=== PATIENT | female | born 1945 | race Caucasian/White ===

== ENCOUNTER 2017-12-16 16:46 | Emergency (ER) | payer OTHER ==
[~2017-12-16] VITALS: Ht 165.1 cm; Wt 141.0 kg
[2017-12-16] MEDS ORDERED: IOHEXOL 300 MG/ML 50 ML VIAL. IV ONE (17:30)
[2017-12-16] MEDS ORDERED: IV NORMAL SALINE 1,000ML 1,000 ML IV ONE (17:30)
[2017-12-16 17:44] LABS: BASO % 0 % (0-3); EOS % 0 % (0-3); HEMATOCRIT 41.7 % (36.0-47.0); HEMOGLOBIN 14.4 g/dL (12.0-15.5); LYMPH # 0.7 x10^3/uL (1.0-4.8); LYMPH % 11 % (24-48); MEAN CORPUSCULAR HEMOGLOBIN 32 pg (25-35); MEAN CORPUSCULAR HGB CONC 35 g/dL (31-37); MEAN CORPUSCULAR VOLUME 93 fL (79-100); MONO # 0.6 x10^3/uL (0.0-1.1); MONO % 9 % (0-9); NEUT # 5.5 x10^3uL (1.8-7.7); NEUT % 80 % (31-73); PLATELET COUNT 160 x10^3/uL (140-400); RED CELL DISTRIBUTION WIDTH 13.6 % (11.5-14.5); WHITE BLOOD COUNT 6.9 x10^3/uL (4.0-11.0)
[2017-12-16] MEDS ORDERED: HYDROmorphone PF 1 MG/ML DISP.SYRIN IM ONE (17:45)
[2017-12-16 18:02] LABS: ALBUMIN 3.3 g/dL (3.4-5.0); ALBUMIN/GLOBULIN RATIO 0.9 (1.0-1.7); CALCIUM 8.9 mg/dL (8.5-10.1); GFR 61.7; TOTAL BILIRUBIN 6.5 mg/dL (0.2-1.0); TOTAL PROTEIN 7.1 g/dL (6.4-8.2)
[2017-12-16 18:03] LABS: CREATININE 0.9 mg/dL (0.6-1.0)
[2017-12-16 18:19] LABS: CLARITY,URINE CLEAR; COLOR,URINE YELLOW; GLUCOSE,URINE NEG (NEG)
[2017-12-16 18:23] LABS: BILIRUBIN,URINE SMALL (NEG); NITRITE,URINE NEG (NEG); UROBILINOGEN,URINE 1 mg/dL (0.2 mg/dL)
[2017-12-16 18:24] LABS: BACTERIA,URINE 0 /HPF (0-FEW); SQUAMOUS EPITHELIAL CELL,UR MOD /LPF; WBC,URINE OCC /HPF (0-4)
--- NOTE | 2017-12-16 18:24 | PHYS DOC ---
Past History Past Medical History: Arthritis, CHF, CVA, Fibromyalgia, High Cholesterol, Hypertension, Hypothyroid, Other Past Surgical History: Hip Replacement, Tubal ligation, Other Alcohol Use: None Drug Use: None Adult General Chief Complaint Chief Complaint: ABDOMINAL PAIN HPI HPI 2-year-old female presents with abdominal pain since last night. The patient started vomiting around 7 PM last night and vomited for 4 hours. She had abdominal pain during this time. The vomiting has improved today, but she still has diffuse abdominal pain worse in the right upper quadrant. She has not had a bowel movement 2 days which is unusual for her. She also denies any flatus today. She is concerned that something wrong abdomen. Patient has multiple chronic medical problems such as lupus, CHF,HTN, chronic pain. See medical hx for more details. The patient spoke with her PCP who is very concerned about her symptoms and advised that she come to the ED. Patient denies fever or chills. She has been taking all of her medicines occasions as prescribed. She takes high dose narcotics for pain and is still having pain. Review of Systems Review of Systems Constitutional: Denies fever or chills [] Eyes: Denies change in visual acuity, redness, or eye pain [] HENT: Denies nasal congestion or sore throat [] Respiratory: Denies cough or shortness of breath [] Cardiovascular: No additional information not addressed in HPI [] GI: Abdominal pain and vomiting[] : Denies dysuria or hematuria [] Musculoskeletal: Denies back pain or joint pain [] Integument: Denies rash or skin lesions [] Neurologic: Denies headache, focal weakness or sensory changes [] Endocrine: Denies polyuria or polydipsia [] All other systems were reviewed and found to be within normal limits, except as documented in this note. Current Medications Current Medications Current Medications Medications (Trade) Dose Ordered Sig/Jack Start Time Stop Time Status Last Admin Dose Admin Hydromorphone HCl (Dilaudid) 1 mg 1X ONCE 12/16/17 17:45 12/16/17 17:46 DC Iohexol (Omnipaque 300 Mg/ml) 100 ml 1X ONCE 12/16/17 17:30 12/16/17 17:31 DC 12/16/17 18:16 50 ML Sodium Chloride 1,000 ml @ 1,000 mls/hr 1X ONCE 12/16/17 17:30 12/16/17 18:29 12/16/17 17:29 1,000 MLS/HR Allergies Allergies Allergies Coded Allergies Type Severity Reaction Last Updated Verified Penicillins Allergy Unknown 12/16/17 Yes dapsone Allergy Unknown 12/16/17 Yes Physical Exam Physical Exam Constitutional: Well developed, well nourished, no acute distress, non-toxic appearance. [] HENT: Normocephalic, atraumatic, bilateral external ears normal, oropharynx moist, no oral exudates, nose normal. [] Eyes: PERRLA, EOMI, conjunctiva normal, no discharge. [] Neck: Normal range of motion, no tenderness, supple, no stridor. [] Cardiovascular:Heart rate regular rhythm, no murmur [] Lungs & Thorax: Bilateral breath sounds clear to auscultation [] Abdomen: Obese, soft, diffuse abdominal tenderness, worse RUQ, no masses, no pulsatile masses. [] Skin: Warm, dry, no erythema, no rash. [] Back: No tenderness, no CVA tenderness. [] Extremities: No tenderness, no cyanosis. [] Neurologic: Alert and oriented X 3, normal motor function, normal sensory function, no focal deficits noted. [] Psychologic: Affect normal, judgement normal, mood normal. [] Current Patient Data Vital Signs Vital Signs Date Time Temp Pulse Resp B/P (MAP) Pulse Ox O2 Delivery O2 Flow Rate FiO2 12/16/17 16:47 98.3 57 20 94 Room Air Lab Results Laboratory Tests Test 12/16/17 17:24 12/16/17 17:34 White Blood Count 6.9 x10^3/uL (4.0-11.0) Red Blood Count 4.50 x10^6/uL (3.50-5.40) Hemoglobin 14.4 g/dL (12.0-15.5) Hematocrit 41.7 % (36.0-47.0) Mean Corpuscular Volume 93 fL (79-100) Mean Corpuscular Hemoglobin 32 pg (25-35) Mean Corpuscular Hemoglobin Concent 35 g/dL (31-37) Red Cell Distribution Width 13.6 % (11.5-14.5) Platelet Count 160 x10^3/uL (140-400) Neutrophils (%) (Auto) 80 % (31-73) H Lymphocytes (%) (Auto) 11 % (24-48) L Monocytes (%) (Auto) 9 % (0-9) Eosinophils (%) (Auto) 0 % (0-3) Basophils (%) (Auto) 0 % (0-3) Neutrophils # (Auto) 5.5 x10^3uL (1.8-7.7) Lymphocytes # (Auto) 0.7 x10^3/uL (1.0-4.8) L Monocytes # (Auto) 0.6 x10^3/uL (0.0-1.1) Eosinophils # (Auto) 0.0 x10^3/uL (0.0-0.7) Basophils # (Auto) 0.0 x10^3/uL (0.0-0.2) Sodium Level 133 mmol/L (136-145) L Potassium Level 4.0 mmol/L (3.5-5.1) Chloride Level 95 mmol/L (98-107) L Carbon Dioxide Level 31 mmol/L (21-32) Anion Gap 7 (6-14) Blood Urea Nitrogen 14 mg/dL (7-20) Creatinine 0.9 mg/dL (0.6-1.0) Estimated GFR (Cockcroft-Gault) 61.7 BUN/Creatinine Ratio 16 (6-20) Glucose Level 121 mg/dL (70-99) H Calcium Level 8.9 mg/dL (8.5-10.1) Total Bilirubin 6.5 mg/dL (0.2-1.0) H Aspartate Amino Transferase (AST) 320 U/L (15-37) H Alanine Aminotransferase (ALT) 390 U/L (14-59) H Alkaline Phosphatase 393 U/L (46-116) H Total Protein 7.1 g/dL (6.4-8.2) Albumin 3.3 g/dL (3.4-5.0) L Albumin/Globulin Ratio 0.9 (1.0-1.7) L Lipase 75 U/L (73-393) EKG EKG [] Radiology/Procedures Radiology/Procedures [] Course & Med Decision Making Course & Med Decision Making Pertinent Labs and Imaging studies reviewed. (See chart for details) The patient's workup is pending. I am signing the patient out to Dr. Dey. [] Dragon Disclaimer Dragon Disclaimer This electronic medical record was generated, in whole or in part, using a voice recognition dictation system. Departure Departure: Referrals: TETE AGUIAR MD (PCP) ULISES BOWERS DO December 16, 2017 18:24
[2017-12-16] MEDS ORDERED: ONDANSETRON ODT 4 MG TAB.RAPDIS PO ONE (18:45)
--- NOTE | 2017-12-16 19:09 | RAD ---
CT ABD PELV W/ IV CONTRST ONLY dated 12/16/2017 6:19 PM Indication:..right sided abdominal pain, constipation, nausesa, hx of aortic aneurysm
gave omni 300 100ml due to patient weighs 310lbs
pain Comparison: No comparison is available. Technique: Contiguous axial imaging of the abdomen and pelvis performed after the administration of 100 cc Omnipaque 300. One or more of the following individualized dose reduction techniques were utilized for this examination: 1. Automated exposure control 2. Adjustment of the mA and/or kV according to patient size 3. Use of iterative reconstruction technique Findings: Limited images of lung bases are clear. Heart size moderately enlarged. No pleural or pericardial effusion. Diffuse low-density liver compatible with fatty infiltration. No apparent mass. Biliary tree is normal in caliber. Spleen is normal in size. There are calcific stones within the gallbladder lumen. Small bubbles of gas are also noted within them within the lumen and there is diffuse gallbladder wall thickening. Small amount of pericholecystic fluid. There are also foci of gas density within the cystic duct. The common bile duct is mildly dilated. No definite distal filling defect Adrenal glands and kidneys are unremarkable. No hydronephrosis. Unopacified GI tract normal in caliber and contour. No focal bowel wall thickening. No inflammatory stranding in the mesentery. No ascites or lymphadenopathy. Abdominal aorta normal in caliber. Appendix within normal limits in caliber. Images of the pelvis show nondistended urinary bladder. Uterus and adnexa are unremarkable. No free fluid or pelvic lymphadenopathy. Bone windows show no acute findings. There is mild superior endplate compression deformity of L3, age indeterminate. Multilevel spondylosis. IMPRESSION: 1. Cholelithiasis with diffuse gallbladder wall thickening and small amount of pericholecystic fluid. There is also some gas density in the gallbladder lumen which could be related to gas-filled stones or sequela of prior sphincterotomy. Acute cholecystitis is suspected. 2. Fatty infiltration of the liver. 3. Mild superior endplate compression deformity of L3, age indeterminate. Electronically signed by: Tomás Perez MD (12/16/2017 7:05 PM) [facility]
[2017-12-16] MEDS ORDERED: CIPROFLOXACIN 400MG PREMIX 200 ML IV ONE (19:30)
--- NOTE | 2017-12-16 19:35 | EKG ---
[address] [address] Test Date: 2017-12-16 Test Time: 19:16:21 Pat Name: BEREKET CHOE Department: Room: Gender: F Rn Cvor: : 1945 Requested By: CADE BROWN Order Number: [id number] Reading MD: Measurements Intervals [place] Rate: 65 P: 51 IN: 218 QRS: 26 QRSD: 74 T: 15 QT: 428 QTc: 446 Interpretive Statements SINUS RHYTHM T ABNORMALITY IN ANTEROSEPTAL LEADS ABNORMAL ECG RI6.01 No previous ECG available for comparison
[2017-12-16 20:05] VITALS: BP 124/52
== END 2017-12-16 20:58 | disposition short-term general hospital (02) ==
LOC: ER 16:46
DX: K81.9 Cholecystitis, unspecified (principal); R79.89 Other specified abnormal findings of blood chemistry; I11.0 Hypertensive heart disease with heart failure; M19.90 Unspecified osteoarthritis, unspecified site; I50.9 Heart failure, unspecified; M79.7 Fibromyalgia; E03.9 Hypothyroidism, unspecified; E78.00 Pure hypercholesterolemia, unspecified; G89.29 Other chronic pain; Z86.73 Personal history of transient ischemic attack (TIA), and cerebral infarction without residual deficits; Z98.51 Tubal ligation status; Z88.0 Allergy status to penicillin; Z88.8 Allergy status to other drugs, medicaments and biological substances
CPT/HCPCS: 36415; 74177; 80053; 81001; 83690; 84484; 85025; 93005; 96361; 96365; 96368; 96372; 99285; J0744; J1170; J3490; Q0162; Q9967; J7030